=== PATIENT | male | born 1960 | race African-American/Black ===

== ENCOUNTER 2017-07-29 01:28 | Inpatient (IN) | payer OTHER ==
[~2017-07-29] VITALS: Ht 172.7 cm; Wt 99.2 kg
[2017-07-29] VITALS (13 sets, daily range): BP systolic 100–194; BP diastolic 52–118
--- NOTE | ~2017-07-29 | EKG ---
[address] [place] [employer] [place] [address] ELECTROCARDIOGRAM REPORT Name: NISREEN NINO Room #: 200-I ADM IN M.R.#: [id number] Admission: 07/29/17 Attend Phys: Abdelrahman Purcell MD Discharge: Date of : 60 Report #: [id number] THIS REPORT FOR: //name// [facility] ED Test Date: 2017-07-29 Test Time: 01:35:07 Pat Name: NISREEN NINO Department: Room: 200 Gender: M [employer]chand[employer] Associate: NAEEM : 1960 Requested By: Lloyd Hall Order Number: [id number] MD: Donnie Veronica Measurements Intervals Coulter Rate: 97 P: 50 FL: 158 QRS: -10 QRSD: 97 T: 73 QT: 392 QTc: 498 Interpretive Statements Sinus tachycardia Ventricular bigeminy Borderline prolonged QT interval Inferior infarct, age indeterminate Compared to ECG 04/29/2016 18:58:13 Ventricular premature complex(es) now present Electronically Signed On 07-29-2017 16:42:40 CDT by Donnie Veronica [email or web address] <ELECTRONICALLY SIGNED> By: Donnie Veronica MD, [facility] 07/29/17 1642 [id number] Donnie Veronica MD, [facility] /EPI
--- NOTE | ~2017-07-29 | 2DMMODE ---
[facility] [employer] [address] 2 D/M-MODE ECHOCARDIOGRAM Name: NISREEN NINO Room #: 200-I ADM IN M.R.#: [id number] Admission: 07/29/17 Attend Phys: Abdelrahman Purcell MD Discharge: Date of : 60 Date of Service: 07/29/17 1420 Report #: [id number] THIS REPORT FOR: //name// APPROVED REPORT Study performed: 07/29/2017 12:28:36 EXAM: Comprehensive 2D, Doppler, and color-flow Echocardiogram Patient Location: Echo lab Room #: 200 Status: routine BSA: 2.13 HR: 68 bpm BP: 100/52 mmHg Rhythm: NSR Other Information Study Quality: Good Indications Fluid overload, elevated BNP, short of air, question CHF. Hx: UT, stent, DM, HTN, HLP 2D Dimensions RVDd: 44.97 mm LVEF(%): 37.71 (>50%) IVSd: 15.11 (7-11mm) LVOT Diam: 21.00 (18-24mm) LVDd: 52.14 mm PWd: 15.47 (7-11mm) Ascending Ao: 36.37 (22-36mm) LVDs: 42.58 (25-40mm) Aortic Root: 38.83 mm Heller's LVEF: 37.71 % Volumes Left Atrial Volume (Systole) Single Plane 4CH: 70.08 mL Single Plane 2CH: 83.69 mL LA ESV Index: 38.00 mL/m2 Aortic Valve AoV Peak Michael.: 1.21 m/s AO Peak Gr.: 5.87 mmHg LVOT Max P.79 mmHg LVOT Max V: 1.09 m/s OLIVERIO Vmax: 3.13 cm2 Mitral Valve E/A Ratio: 1.8 [facility] [employer] [address] 2 D/M-MODE ECHOCARDIOGRAM Name: NISREEN NINO BABATUNDE Room #: 200-I ADM IN M.R.#: [id number] Admission: 07/29/17 Attend Phys: Abdelrahman Purcell MD Discharge: Date of : 60 Date of Service: 07/29/17 1420 Report #: [id number] MV Decel. Time: 159.44 ms MV E Max Michael.: 0.96 m/s MV A Michael.: 0.53 m/s MV PHT: 46.24 ms IVRT: 83.04 ms Pulmonary Valve PV Peak Michael.: 0.66 m/s PV Peak Gr.: 1.74 mmHg Pulmonary Vein P Vein S: 0.66 m/s P Vein D: 0.58 m/s P Vein S/D Ratio: 1.14 Tricuspid Valve TR Peak Michael.: 2.43 m/s RAP Estimate: 15.00 mmHg TR Peak Gr.: 23.52 mmHg PA Pressure: 39.00 mmHg Left Ventricle The left ventricle is normal size. Moderate concentric left ventricular hypertrophy. Left ventricular systolic function is moderate to severely decreased. LVEF is 30-35%. LVEF is within normal limits. Right Ventricle Right ventricle is dilated. Right ventricle is hypokinetic. Atria Left atrium is mildly dilated. Left atrium is not well visualized. Left atrium is at the upper limits of normal. Right atrium is mildly dilated. Right atrium size is normal. Aortic Valve The aortic valve is normal in structure. The aortic valve is not well visualized. Aortic valve is calcified. No aortic regurgitation is present. There is no aortic valvular stenosis. Mitral Valve The mitral valve is normal in structure. Mild mitral regurgitation. Tricuspid Valve The tricuspid valve is normal in structure. Mild to moderate tricuspid regurgitation. Estimated PAP is 35-40mmHg. [address] [address] 2 D/M-MODE ECHOCARDIOGRAM Name: NISREEN NINO Room #: 200-I ADM IN ..#: [id number] Admission: 07/29/17 Attend Phys: Abdelrahman Purcell MD Discharge: Date of : 60 Date of Service: 07/29/17 1420 Report #: [id number] Pulmonic Valve The pulmonary valve is normal in structure. Trace pulmonic regurgitation. Great Vessels Aortic root is mildly dilated at 3.9cm. The ascending aorta is normal in size. IVC is dilated and collapses <50% with inspiration. Pericardium There is no pericardial effusion. <Conclusion> The left ventricle is normal size. Moderate concentric left ventricular hypertrophy. Left ventricular systolic function is moderate to severely decreased. LVEF is 30-35%. Right ventricle is dilated. Right ventricle is hypokinetic. Left atrium is mildly dilated. Right atrium is mildly dilated. There is no aortic valvular stenosis. Mild mitral regurgitation. Mild to moderate tricuspid regurgitation. Estimated PAP is 35-40mmHg. Aortic root is mildly dilated at 3.9cm. IVC is dilated and collapses <50% with inspiration. There is no pericardial effusion. <ELECTRONICALLY SIGNED> By: Frederic Lugo MD 07/29/17 142 19 19 Frederic Lugo MD /INF
[~2017-07-29 01:28] MED LIST: ASPIRIN325 OR; CATAPRES0.2 MG PO; CLONIDINE HCL0.2 M2 PO; COREG PO; EFFIENT10 MG PO; EXFORGE PO; FLEXERIL PO; FUROSEMIDE 40 M40 M1 PO; GABAPENTIN100 MG PO; GLUCOPHAGE XR500 MG PO; GLYBURIDE 5 MG T5 M1 PO; GLYBURIDE 5 MG T5 MG PO; HYDROCHLOROTHIA25 M2 PO; KEFLEX500 MG PO; LANTUS SC; LASIX 40 MG TAB40 M1 PO; LIPITOR40 MG PO; NEURONTIN 300300 M1 PO; NORCO 5-325 TA1 EACH PO; PERCOCET 5-3251 EACH PO; PREDNISONE 20 M20 MG PO; PROTONIX40 M1 PO; SIMCOR 1,000-41 EACH PO; TOPROL XL100 MG PO; URSODIOL300 MG PO; ZOFRAN4 MG PO
[2017-07-29 01:56] LABS: ABSOLUTE NEUTROPHILS 7.2 thou/uL (1.4-8.2); BASOPHILS 0.9 % (0.0-2.0); EOSINOPHILS 0.6 % (0.0-3.0); HEMATOCRIT 37.1 % (42.0-52.0); HEMOGLOBIN 11.8 gm/dL (14.0-18.0); LYMPHOCYTES 9.7 % (24.0-44.0); MCH 23.7 pg (26.0-34.0); MCHC 31.7 g/dL (28.0-37.0); MCV 74.8 fL (80.0-100.0); MONOCYTES 8.2 % (1.0-8.0); PLATELET COUNT 213 thou/uL (150-400); POLYS 80.6 % (36.0-66.0); RBC 4.96 mil/uL (4.50-6.00); RDW 16.5 % (10.5-14.5)
[2017-07-29 02:01] LABS: CALCIUM 8.7 mg/dL (8.5-10.1); CREATININE 1.6 mg/dL (0.7-1.3)
[2017-07-29] MEDS ORDERED: LASIX 10 MG/10 MG/M1 PO (02:01)
[2017-07-29 02:10] LABS: TROPONIN-I 0.11 ng/mL (<0.06)
[2017-07-29] MEDS ORDERED: DIOVAN320 MG PO (05:14)
[2017-07-29] MEDS ORDERED: DEMADEX20 MG PO (05:15)
[2017-07-29] MEDS ORDERED: ALDACTONE25 MG PO (05:15)
[2017-07-29] MEDS ORDERED: COREG25 MG PO (05:16)
[2017-07-29] MEDS ORDERED: HYDRALAZINE 2525 MG PO (05:16)
[2017-07-29 05:40] LABS: CHOLESTEROL 184 mg/dL (<200); HDL CHOLESTEROL 44 mg/dL (>40); LDL CHOLESTEROL 122 mg/dL (<100); SERUM ASSESSMENT Clear; TC:HDL 4.2 Ratio (Not establshd); TRIGLYCERIDE 93 mg/dL (<150); VLDL 19 mg/dL (<40)
[2017-07-29] MEDS ORDERED: NOVOLOG100 UNIT/1 SUBQ (05:40)
[2017-07-30] VITALS (15 sets, daily range): BP systolic 109–148; BP diastolic 57–83
[2017-07-30 04:35] LABS: CALCIUM 8.1 mg/dL (8.5-10.1); CREATININE 1.5 mg/dL (0.7-1.3); POTASSIUM 3.9 mmol/L (3.5-5.1)
[2017-07-30 14:31] LABS: ALBUMIN 1.9 g/dL (3.4-5.0); CALCIUM 7.9 mg/dL (8.5-10.1); CREATININE 1.9 mg/dL (0.7-1.3); POTASSIUM 4.3 mmol/L (3.5-5.1)
[2017-07-30 20:27] LABS: PROT/CREAT RATIO 1.4; URINE CREATININE-RANDOM* 58.4 mg/dL; URINE PROTEIN-RANDOM* 82.7 mg/dL (<11.9)
[2017-07-31 03:42] LABS: ABSOLUTE NEUTROPHILS 7.5 thou/uL (1.4-8.2); BASOPHILS 0.2 % (0.0-2.0); EOSINOPHILS 0.2 % (0.0-3.0); HEMATOCRIT 34.1 % (42.0-52.0); LYMPHOCYTES 6.2 % (24.0-44.0); MCH 23.7 pg (26.0-34.0); MCHC 32.2 g/dL (28.0-37.0); MCV 73.5 fL (80.0-100.0); MONOCYTES 8.7 % (1.0-8.0); PLATELET COUNT 208 thou/uL (150-400); POLYS 84.7 % (36.0-66.0); RBC 4.64 mil/uL (4.50-6.00); RDW 16.4 % (10.5-14.5); WBC 8.8 thou/uL (4.0-11.0)
[2017-07-31 03:57] LABS: CALCIUM 8.3 mg/dL (8.5-10.1); CREATININE 1.8 mg/dL (0.7-1.3); POTASSIUM 3.6 mmol/L (3.5-5.1)
[2017-07-31 04:36] VITALS: BP 125/83
[2017-07-31 07:33] VITALS: BP 142/96
[2017-07-31 11:21] VITALS: BP 123/65
[2017-07-31 14:01] VITALS: BP 123/65
[2017-07-31 15:55] VITALS: BP 126/69
[2017-07-31 19:51] VITALS: BP 101/59
[2017-08-01 04:22] LABS: ABSOLUTE NEUTROPHILS 6.6 thou/uL (1.4-8.2); ALBUMIN 1.6 g/dL (3.4-5.0); BASOPHILS 0.2 % (0.0-2.0); CALCIUM 8.2 mg/dL (8.5-10.1); CREATININE 2.1 mg/dL (0.7-1.3); EOSINOPHILS 0.4 % (0.0-3.0); HEMATOCRIT 31.6 % (42.0-52.0); HEMOGLOBIN 10.2 gm/dL (14.0-18.0); LYMPHOCYTES 8.9 % (24.0-44.0); MCH 23.7 pg (26.0-34.0); MCHC 32.3 g/dL (28.0-37.0); MCV 73.2 fL (80.0-100.0); MONOCYTES 10.4 % (1.0-8.0); PHOSPHORUS 4.5 mg/dL (2.5-4.9); PLATELET COUNT 212 thou/uL (150-400); POLYS 80.1 % (36.0-66.0); POTASSIUM 3.1 mmol/L (3.5-5.1); RBC 4.31 mil/uL (4.50-6.00); RDW 16.4 % (10.5-14.5); WBC 8.2 thou/uL (4.0-11.0)
[2017-08-01 05:14] VITALS: BP 105/56
[2017-08-01 07:17] VITALS: BP 125/61
[2017-08-01 11:26] VITALS: BP 125/73
[2017-08-01 15:07] VITALS: BP 109/51
[2017-08-01 20:10] VITALS: BP 138/68
[2017-08-02 03:59] LABS: HEMOGLOBIN 9.7 gm/dL (14.0-18.0)
[2017-08-02 04:01] LABS: ABSOLUTE NEUTROPHILS 7.2 thou/uL (1.4-8.2); BASOPHILS 0.4 % (0.0-2.0); HEMATOCRIT 30.1 % (42.0-52.0); LYMPHOCYTES 8.2 % (24.0-44.0); MCH 23.6 pg (26.0-34.0); MCHC 32.4 g/dL (28.0-37.0); MCV 73.1 fL (80.0-100.0); PLATELET COUNT 227 thou/uL (150-400); POLYS 80.4 % (36.0-66.0); RBC 4.11 mil/uL (4.50-6.00); RDW 16.6 % (10.5-14.5); WBC 8.9 thou/uL (4.0-11.0)
[2017-08-02 04:10] VITALS: BP 109/57
[2017-08-02 04:11] LABS: ALBUMIN 1.5 g/dL (3.4-5.0); CALCIUM 8.3 mg/dL (8.5-10.1); CREATININE 2.1 mg/dL (0.7-1.3); PHOSPHORUS 3.8 mg/dL (2.5-4.9); POTASSIUM 3.2 mmol/L (3.5-5.1)
[2017-08-02 06:12] LABS: ANISOCYTOSIS 1+; HYPOCHROMASIA SLIGHT; MICROCYTES SLIGHT
[2017-08-02 07:26] VITALS: BP 108/66
[2017-08-02 12:00] VITALS: BP 108/60
[2017-08-02 15:49] VITALS: BP 124/63
[2017-08-02 19:58] VITALS: BP 126/90
[2017-08-02 23:08] VITALS: BP 134/79
[2017-08-03 04:25] LABS: ALBUMIN 1.5 g/dL (3.4-5.0); CALCIUM 8.4 mg/dL (8.5-10.1); CREATININE 2.1 mg/dL (0.7-1.3); PHOSPHORUS 4.2 mg/dL (2.5-4.9); POTASSIUM 3.5 mmol/L (3.5-5.1)
[2017-08-03 04:29] LABS: ABSOLUTE NEUTROPHILS 7.9 thou/uL (1.4-8.2); BASOPHILS 0.5 % (0.0-2.0); EOSINOPHILS 1.9 % (0.0-3.0); HEMATOCRIT 30.4 % (42.0-52.0); HEMOGLOBIN 9.9 gm/dL (14.0-18.0); LYMPHOCYTES 8.3 % (24.0-44.0); MCH 23.7 pg (26.0-34.0); MCHC 32.6 g/dL (28.0-37.0); MCV 72.7 fL (80.0-100.0); MONOCYTES 9.5 % (1.0-8.0); PLATELET COUNT 260 thou/uL (150-400); POLYS 79.8 % (36.0-66.0); RBC 4.18 mil/uL (4.50-6.00); RDW 16.7 % (10.5-14.5); WBC 9.9 thou/uL (4.0-11.0)
[2017-08-03 05:23] VITALS: BP 149/91
[2017-08-03 07:20] VITALS: BP 147/91
[2017-08-03 11:20] VITALS: BP 138/81
[2017-08-03 15:05] VITALS: BP 143/80
[2017-08-03 21:02] VITALS: BP 149/82
[2017-08-04 03:29] LABS: HEMATOCRIT 31.2 % (42.0-52.0); HEMOGLOBIN 9.9 gm/dL (14.0-18.0); MCH 23.2 pg (26.0-34.0); MCHC 31.6 g/dL (28.0-37.0); MCV 73.3 fL (80.0-100.0); PLATELET COUNT 324 thou/uL (150-400); RBC 4.25 mil/uL (4.50-6.00); RDW 16.7 % (10.5-14.5); WBC 11.4 thou/uL (4.0-11.0)
[2017-08-04 03:48] LABS: ALBUMIN 1.6 g/dL (3.4-5.0); CALCIUM 8.9 mg/dL (8.5-10.1); CREATININE 1.9 mg/dL (0.7-1.3); PHOSPHORUS 3.7 mg/dL (2.5-4.9); POTASSIUM 3.4 mmol/L (3.5-5.1)
[2017-08-04 03:55] VITALS: BP 175/104
[2017-08-04 07:25] VITALS: BP 154/75
[2017-08-04 08:31] LABS: ABSOLUTE NEUTROPHILS 8.7 thou/uL (1.4-8.2); HYPOCHROMASIA 1+; PLATELET ESTIMATE NORMAL
[2017-08-04 08:32] LABS: ANISOCYTOSIS 1+; MICROCYTES 2+
[2017-08-04 11:40] VITALS: BP 146/80
[2017-08-04 15:10] VITALS: BP 149/83
[2017-08-04 19:02] VITALS: BP 149/80
[2017-08-05 04:25] VITALS: BP 183/107
[2017-08-05 04:55] LABS: HEMATOCRIT 32.3 % (42.0-52.0); HEMOGLOBIN 10.3 gm/dL (14.0-18.0); MCH 23.3 pg (26.0-34.0); MCV 72.8 fL (80.0-100.0); PLATELET COUNT 323 thou/uL (150-400); RBC 4.44 mil/uL (4.50-6.00); RDW 16.6 % (10.5-14.5); WBC 11.1 thou/uL (4.0-11.0)
[2017-08-05 05:30] LABS: ALBUMIN 1.7 g/dL (3.4-5.0); CALCIUM 9.5 mg/dL (8.5-10.1); CREATININE 1.7 mg/dL (0.7-1.3); PHOSPHORUS 3.6 mg/dL (2.5-4.9); POTASSIUM 3.7 mmol/L (3.5-5.1)
[2017-08-05 06:04] VITALS: BP 157/92
[2017-08-05 06:24] LABS: ABSOLUTE NEUTROPHILS 9.3 thou/uL (1.4-8.2); METAMYELOCYTES 1 %
[2017-08-05 06:25] LABS: ANISOCYTOSIS 2+
[2017-08-05 08:20] VITALS: BP 164/88
[2017-08-05 17:05] VITALS: BP 154/91
[2017-08-05 19:27] VITALS: BP 158/91
[2017-08-06 04:23] VITALS: BP 177/108
[2017-08-06 04:32] LABS: HEMATOCRIT 31.8 % (42.0-52.0); HEMOGLOBIN 10.1 gm/dL (14.0-18.0); MCH 23.2 pg (26.0-34.0); MCHC 31.9 g/dL (28.0-37.0); MCV 72.7 fL (80.0-100.0); PLATELET COUNT 349 thou/uL (150-400); RBC 4.37 mil/uL (4.50-6.00); RDW 16.5 % (10.5-14.5); WBC 9.8 thou/uL (4.0-11.0)
[2017-08-06 04:53] LABS: ALBUMIN 1.7 g/dL (3.4-5.0); CALCIUM 9.6 mg/dL (8.5-10.1); CREATININE 1.5 mg/dL (0.7-1.3); PHOSPHORUS 3.6 mg/dL (2.5-4.9); POTASSIUM 3.9 mmol/L (3.5-5.1)
[2017-08-06 07:29] VITALS: BP 191/111
[2017-08-06 07:36] LABS: ABSOLUTE NEUTROPHILS 7.8 thou/uL (1.4-8.2); ANISOCYTOSIS 1+; HYPOCHROMASIA 1+; METAMYELOCYTES 4 %; MICROCYTES 1+
[2017-08-06] MEDS ORDERED: ALDACTONE25 MG PO (09:12)
[2017-08-06] MEDS ORDERED: DEMADEX 2020 MG/1 TA PO (09:15)
[2017-08-06 11:33] VITALS: BP 150/64
[2017-08-06 12:00] VITALS: BP 123/65
[2017-08-06 12:25] VITALS: BP 123/65
[2017-08-06 12:47] VITALS: BP 123/65
[2017-09-05] MEDS ORDERED: NORVASC10 MG PO (07:54)
[2017-09-05] MEDS ORDERED: HYDRALAZINE 2525 MG PO (07:54)
[2017-09-05] MEDS ORDERED: DEMADEX 2020 MG/1 TA PO (07:54)
== END 2017-08-06 14:20 | disposition home health service (06) | DRG 682 ==
LOC: ER 01:28 → EROBS 03:01 → 2N 03:01 → ENTRNSPT 08-06 13:57 → EDTRNSPTSTS 08-06 14:01 → 2N 08-06 14:20
PROVIDERS: Emergency Medicine; Family Medicine; Hospitalist; Internal Medicine Cardiovascular Disease; Internal Medicine Nephrology; Nurse Practitioner Acute Care; Nurse Practitioner Gerontology
DX: N17.9 Acute kidney failure, unspecified (principal); I50.23 Acute on chronic systolic (congestive) heart failure; I13.0 Hypertensive heart and chronic kidney disease with heart failure and stage 1 through stage 4 chronic kidney disease, or unspecified chronic kidney disease; E78.5 Hyperlipidemia, unspecified; G47.33 Obstructive sleep apnea (adult) (pediatric); E11.65 Type 2 diabetes mellitus with hyperglycemia; I16.0 Hypertensive urgency; I25.10 Atherosclerotic heart disease of native coronary artery without angina pectoris; Z60.2 Problems related to living alone; E11.22 Type 2 diabetes mellitus with diabetic chronic kidney disease; E87.6 Hypokalemia; N18.9 Chronic kidney disease, unspecified; D64.9 Anemia, unspecified; I25.2 Old myocardial infarction; Z87.891 Personal history of nicotine dependence; Z95.5 Presence of coronary angioplasty implant and graft; Z79.4 Long term (current) use of insulin; Z82.49 Family history of ischemic heart disease and other diseases of the circulatory system; Z79.82 Long term (current) use of aspirin; Z79.899 Other long term (current) drug therapy
CPT/HCPCS: 10081